=== PATIENT | female | born 1950 | race Caucasian/White ===

== ENCOUNTER 2025-05-13 08:09 | Outpatient (CLI) | payer MEDICARE, BC, OTHER | END 2025-05-13 08:10 | disposition home or self-care (01) | LOC: CSHWCC 08:09 | PROVIDERS: ATTEND Nurse Practitioner Family | DX: I73.9 Peripheral vascular disease, unspecified (principal); I89.0 Lymphedema, not elsewhere classified; I87.2 Venous insufficiency (chronic) (peripheral) | CPT/HCPCS: 99212; G0463 ==